=== PATIENT | male | born 1995 | race African-American/Black ===

== ENCOUNTER 2017-08-27 21:32 | Emergency (ER) | payer SELFPAY ==
[~2017-08-27] VITALS: Ht 172.7 cm; Wt 157.0 kg
[2017-08-27 21:35] VITALS: BP 168/98; PULSE 82; RESP 16; TEMP 98.4; O2SAT 100
[2017-08-27 22:09] VITALS: RESP 18; O2SAT 98
[2017-08-27] MEDS ORDERED: ASPIRIN 81 MG CHEW TAB PO ONE (22:15)
[2017-08-27] MEDS ORDERED: SODIUM CHLORIDE 0.9% FLUSH 10 ML FLUSH IVF PRN (22:15)
--- NOTE | 2017-08-27 22:18 | PD ---
HPI Chief Complaint: Chest Pain Time Seen by Provider: 22:05 Travel History International Travel<30 days: No Contact w/Intl Traveler<30days: No Traveled to known affect area: No History of Present Illness HPI 22-year-old male presents to the ED for evaluation of 3 or 4 day history of intermittent chest pain. Described as a tightness in the central chest. Rated 3/10 maximally. Lasting for a few seconds before resolving spontaneously. Patient states that he noted an episode while he was step dancing but is otherwise unable to identify any exacerbating factors. He denies associated diaphoresis, nausea, vomiting, palpitations. Denies chest pain on presentation. He also complains of a few week history of intermittent headaches , located in various locations of the head. Maximally 4/10. Occasionally accompanied by blurred vision. Patient denies accompanying dizziness, nausea or vomiting. He states that he treats with Tylenol which improves his symptoms. Denies headache on presentation. He states that after his headaches he went to the clinic at [facility] where he is a [employer] studying biology. He states that he recently found out that he has HTN and since this he has been very anxious about his health. He denies chronic health history. Denies family history of ACS. He is a lifelong non-smoker. He denies illicit drug use. He endorses an occasional glass of wine but denies binge drinking. Denies recent history of immobilization, history of DVT. PFSH Past Medical History Medical History: Denies Significant Hx Tetanus Vaccination: < 5 Years Influenza Vaccination: No Past Surgical History Tonsillectomy: Yes Social History Alcohol Use: No Tobacco Use: No Substance Use: No Allergies-Medications (Allergen,Severity, Reaction): Coded Allergies: No Known Drug Allergies (Verified Allergy, Unknown, 08/27/17) Reported Meds & Prescriptions Reported Meds & Active Scripts Active Active Prescriptions or Reported Medications Unobtainable Review of Systems Except as stated in HPI: all other systems reviewed are Neg Physical Exam Narrative GENERAL: Well-nourished, well-developed obese, anxious appearing - [place] male in no acute distress. SKIN: Focused skin assessment warm/dry. HEAD: Normocephalic. EYES: No scleral icterus. No injection or drainage. NECK: Supple, trachea midline. No JVD or lymphadenopathy. CARDIOVASCULAR: Regular rate and rhythm without murmurs, gallops, or rubs. RESPIRATORY: Breath sounds clear and equal bilaterally. No accessory muscle use. GASTROINTESTINAL: Abdomen soft, non-tender, nondistended. MUSCULOSKELETAL: No cyanosis, or edema. BACK: Nontender without obvious deformity. No CVA tenderness. Data Data Last Documented VS Vital Signs Date Time Temp Pulse Resp B/P (MAP) Pulse Ox O2 Delivery O2 Flow Rate FiO2 08/27/17 22:09 18 98 Room Air 08/27/17 21:35 98.4 82 Orders Orders Electrocardiogram (08/27/17 22:05) Basic Metabolic Panel (Bmp) (08/27/17 22:05) Ckmb (Isoenzyme) Profile (08/27/17 22:05) Complete Blood Count With Diff (08/27/17 22:05) Magnesium (Mg) (08/27/17 22:05) Prothrombin Time / Inr (Pt) (08/27/17 22:05) Act Partial Throm Time (Ptt) (08/27/17 22:05) Troponin I (08/27/17 22:05) Chest, Single Ap (08/27/17 22:05) Ecg Monitoring (08/27/17 22:05) Bilateral Bp Monitoring (08/27/17 22:05) Iv Access Insert/Monitor (08/27/17 22:05) Oximetry (08/27/17 22:05) Aspirin Chew (Aspirin Chew) (08/27/17 22:15) Sodium Chloride 0.9% Flush (Ns Flush) (08/27/17 22:15) MDM Medical Decision Making Medical Screen Exam Complete: Yes Emergency Medical Condition: Yes Differential Diagnosis anxiety versus HTN versus less likely ACS versus other Narrative Course 22-year-old male presents to the ED for evaluation of "3 or 4" day history of intermittent chest pain. Described as a tightness,3/10 maximally. Lasting for a few seconds before resolving spontaneously. No associated symptoms. Denies chest pain on presentation. He also complains of a few week history of intermittent headaches, located in various locations of the head. Maximally 4/ 10. Occasionally accompanied by blurred vision. Resolved with Tylenol. Denies headache on presentation. He denies chronic health history, family history of ACS. He is a lifelong non-smoker. He denies illicit drug use. He endorses an occasional glass of wine but denies binge drinking. He had his headaches evaluated at the [facility] clinic and was found to be hypertensive. He states that this has made him very anxious about his health. Afebrile. Pulse 82, BP 168/98 on presentation. Physical exam reveals an obese -[place] male who is very anxious appearing. When I place my stethoscope scope on his chest he states that the chest pain returns. Resolves before I leave the room. Breath sounds clear and equal bilaterally. No lower extremity edema. IV was established. Patient was administered 325 mg aspirin by mouth. EKG rate 77, sinus rhythm. Normal intervals. Normal axis. No acute ST changes. Reviewed by Dr. Marquez. CBC, CMP, coags, cardiac enzymes, magnesium ordered and pending. Patient signed out to Dr. Marquez at the end of shift. Please see his note for disposition. Scripts Unable to Obtain Active Prescriptions or Reported Meds Celia Correia Aug 27, 2017 22:18
--- NOTE | 2017-08-27 22:23 | RADRPT ---
EXAM DATE/TIME: 08/27/2017 22:14 [facility] COMPARISON: No previous studies available for comparison. INDICATIONS : Chest pain. MEDICAL HISTORY : Hypertension. SURGICAL HISTORY : None. ENCOUNTER: Initial ACUITY: 1 day PAIN SCORE: 2/10 LOCATION: Bilateral chest FINDINGS: The heart is mildly prominent. The pulmonary vascular and is normal. The lungs are clear. CONCLUSION: 1. Mild cardiomegaly. 2. No acute focal pulmonary infiltrate or pulmonary vascular congestion. Gus Garcia MD on August 27, 2017 at 22:19 Board Certified Radiologist. This report was verified electronically.
[2017-08-27 22:36] LABS: AUTOMATED NEUTROPHIL # 4.5 TH/MM3 (1.8-7.7); BASOPHIL % 0.5 % (0.0-2.0); EOSINOPHIL # 0.1 TH/MM3 (0-0.4); EOSINOPHIL % 0.8 % (0.0-4.0); HEMATOCRIT 43.7 % (39.0-51.0); HEMOGLOBIN 14.7 GM/DL (13.0-17.0); LYMPHOCYTE # 3.1 TH/MM3 (1.0-4.8); MEAN CORPUSCULAR HGB CONC 33.7 % (32.0-36.0); MEAN PLATELET VOLUME 8.5 FL (7.0-11.0); MONO % 12.5 % (0.0-8.0); MONOCYTE # 1.1 TH/MM3 (0-0.9); NEUT % 51.2 % (16.0-70.0); PLATELET COUNT 262 TH/MM3 (150-450); RED BLOOD COUNT 5.46 MIL/MM3 (4.50-5.90); RED CELL DISTRIBUTION WIDTH 14.5 % (11.6-17.2); WHITE BLOOD COUNT 8.8 TH/MM3 (4.0-11.0)
--- NOTE | 2017-08-27 22:40 | PD ---
Physical Exam Date Seen by Provider: Aug 27, 2017 Time Seen by Provider: 22:39 Narrative The patient is a 22-year-old [place] male who was originally evaluated by the mid-level provider. Please refer to the initial history, physical, diagnostic evaluation, and treatment modality plan. Data Data Last Documented VS Vital Signs Date Time Temp Pulse Resp B/P (MAP) Pulse Ox O2 Delivery O2 Flow Rate FiO2 08/27/17 22:09 18 98 Room Air 08/27/17 21:35 98.4 82 Orders Orders Electrocardiogram (08/27/17 22:05) Basic Metabolic Panel (Bmp) (08/27/17 22:05) Ckmb (Isoenzyme) Profile (08/27/17 22:05) Complete Blood Count With Diff (08/27/17 22:05) Magnesium (Mg) (08/27/17 22:05) Prothrombin Time / Inr (Pt) (08/27/17 22:05) Act Partial Throm Time (Ptt) (08/27/17 22:05) Troponin I (08/27/17 22:05) Chest, Single Ap (08/27/17 22:05) Ecg Monitoring (08/27/17 22:05) Bilateral Bp Monitoring (08/27/17 22:05) Iv Access Insert/Monitor (08/27/17 22:05) Oximetry (08/27/17 22:05) Aspirin Chew (Aspirin Chew) (08/27/17 22:15) Sodium Chloride 0.9% Flush (Ns Flush) (08/27/17 22:15) CKMB (08/27/17 22:11) CKMB% (08/27/17 22:11) Labs Laboratory Tests Test 08/27/17 22:11 White Blood Count 8.8 TH/MM3 Red Blood Count 5.46 MIL/MM3 Hemoglobin 14.7 GM/DL Hematocrit 43.7 % Mean Corpuscular Volume 80.0 FL Mean Corpuscular Hemoglobin 27.0 PG Mean Corpuscular Hemoglobin Concent 33.7 % Red Cell Distribution Width 14.5 % Platelet Count 262 TH/MM3 Mean Platelet Volume 8.5 FL Neutrophils (%) (Auto) 51.2 % Lymphocytes (%) (Auto) 35.0 % Monocytes (%) (Auto) 12.5 % Eosinophils (%) (Auto) 0.8 % Basophils (%) (Auto) 0.5 % Neutrophils # (Auto) 4.5 TH/MM3 Lymphocytes # (Auto) 3.1 TH/MM3 Monocytes # (Auto) 1.1 TH/MM3 Eosinophils # (Auto) 0.1 TH/MM3 Basophils # (Auto) 0.0 TH/MM3 CBC Comment DIFF FINAL Differential Comment Prothrombin Time 11.2 SEC Prothromb Time International Ratio 1.1 RATIO Activated Partial Thromboplast Time 30.8 SEC Blood Urea Nitrogen 12 MG/DL Creatinine 1.05 MG/DL Random Glucose 83 MG/DL Calcium Level 9.2 MG/DL Magnesium Level 2.4 MG/DL Sodium Level 143 MEQ/L Potassium Level 3.7 MEQ/L Chloride Level 105 MEQ/L Carbon Dioxide Level 30.1 MEQ/L Anion Gap 8 MEQ/L Estimat Glomerular Filtration Rate 106 ML/MIN Total Creatine Kinase 730 U/L Troponin I LESS THAN 0.02 NG/ML [facility] Medical Record Reviewed: Yes Supervised Visit with MARLEY: Yes Interpretation(s) EKG reveals normal sinus rhythm with a rate of 77. No ischemic changes or ectopy noted. Laboratory Tests Test 08/27/17 22:11 White Blood Count 8.8 TH/MM3 Red Blood Count 5.46 MIL/MM3 Hemoglobin 14.7 GM/DL Hematocrit 43.7 % Mean Corpuscular Volume 80.0 FL Mean Corpuscular Hemoglobin 27.0 PG Mean Corpuscular Hemoglobin Concent 33.7 % Red Cell Distribution Width 14.5 % Platelet Count 262 TH/MM3 Mean Platelet Volume 8.5 FL Neutrophils (%) (Auto) 51.2 % Lymphocytes (%) (Auto) 35.0 % Monocytes (%) (Auto) 12.5 % Eosinophils (%) (Auto) 0.8 % Basophils (%) (Auto) 0.5 % Neutrophils # (Auto) 4.5 TH/MM3 Lymphocytes # (Auto) 3.1 TH/MM3 Monocytes # (Auto) 1.1 TH/MM3 Eosinophils # (Auto) 0.1 TH/MM3 Basophils # (Auto) 0.0 TH/MM3 CBC Comment DIFF FINAL Differential Comment Prothrombin Time 11.2 SEC Prothromb Time International Ratio 1.1 RATIO Activated Partial Thromboplast Time 30.8 SEC Blood Urea Nitrogen 12 MG/DL Creatinine 1.05 MG/DL Random Glucose 83 MG/DL Calcium Level 9.2 MG/DL Magnesium Level 2.4 MG/DL Sodium Level 143 MEQ/L Potassium Level 3.7 MEQ/L Chloride Level 105 MEQ/L Carbon Dioxide Level 30.1 MEQ/L Anion Gap 8 MEQ/L Estimat Glomerular Filtration Rate 106 ML/MIN Total Creatine Kinase 730 U/L Troponin I LESS THAN 0.02 NG/ML Differential Diagnosis Differential diagnosis includes ACS, hypertensive urgency, hypertensive emergency, STEMI, pericarditis, myocarditis, GERD, esophageal spasm, pneumonia, anxiety. Narrative Course I, Dr. Marquez, have reviewed the advance practice practitioner's documentation and am in agreement, met with the patient face to face, made the diagnosis, and the medical decision making was done by me. *My assessment and Findings: The patient is a 22-year-old male who was initially evaluated by the mid-level provider. Please refer to the initial history, physical, diagnostic evaluation, treatment modality plan. The patient is had intermittent chest pain since he was diagnosed with hypertension. The chest pain is intermittent, nonexertional, not associated with any nausea, vomiting, or shortness of breath. Patient does have a history of hypertension, recently diagnosed, denies any known history of CAD. CK was mildly elevated at 7:30, however, the patient's troponin is less than 0.02. EKG is unremarkable. The patient was reevaluated at 11:08 PM. The patient states he has been wearing since he was diagnosed with blood pressure, thinks his pain is related to anxiety. The pain is substernal, lasts seconds, and is usually associated when he is thinking about his blood pressure. He has a follow-up appointment tomorrow. He will be provided a copy of his labs and chest x-ray results at discharge. He is advised to return if symptoms worsen or progress. Diagnosis Primary Impression: Atypical chest pain Additional Impression: Hypertension Qualified Codes: I10 - Essential (primary) hypertension Patient Instructions: General Instructions Additional Instruction: Follow-up with your physician tomorrow as scheduled. Please provide the patient a copy of his labs, EKG, and chest x-ray results at discharge. Return if symptoms worsen or progress. Med/Other Pt SpecificInfo: No Change to Meds Scripts Unable to Obtain Active Prescriptions or Reported Meds Disposition: DISCHARGE HOME Condition: Stable Marcio Marquez MD Aug 27, 2017 22:40
[2017-08-27 22:46] LABS: INTERNATIONAL NORMALIZED RATIO 1.1 RATIO; PROTHROMBIN TIME - PATIENT 11.2 SEC (9.8-11.6)
[2017-08-27 22:56] LABS: TROPONIN I LESS THAN 0.02 NG/ML (0.02-0.05)
[2017-08-27 22:58] LABS: BICARBONATE 30.1 MEQ/L (21.0-32.0); BLOOD UREA NITROGEN 12 MG/DL (7-18); CALCIUM 9.2 MG/DL (8.5-10.1); CHLORIDE 105 MEQ/L (98-107); CREATININE 1.05 MG/DL (0.60-1.30); GLOMERULAR FILTRATION RATE 106 ML/MIN (>89); GLUCOSE,RANDOM 83 MG/DL (74-106); MAGNESIUM 2.4 MG/DL (1.5-2.5); SODIUM (NA) 143 MEQ/L (136-145)
--- NOTE | 2017-08-28 09:23 | EKG ---
Date Performed: 08/27/2017 Time Performed: 22:05:34 PTAGE: 22 years EKG: Sinus rhythm NORMAL ECG NO PREVIOUS TRACING DOCTOR: Chon Marks Interpretating Date/Time 08/28/2017 09:22:09
== END 2017-08-27 23:27 | disposition home or self-care (01) ==
LOC: NEPE 21:32
DX: R07.89 Other chest pain (principal); I10 Essential (primary) hypertension; H53.8 Other visual disturbances; R51 Headache
CPT/HCPCS: 71045; 80048; 82550; 82552; 83735; 84484; 85025; 85610; 85730; 93005